=== PATIENT | female | born 1960 | race African-American/Black ===

== ENCOUNTER 2018-08-09 15:20 | Emergency (ER) | payer SELFPAY ==
[~2018-08-09] VITALS: Ht 162.6 cm; Wt 62.0 kg
[~2018-08-09 15:20] MED LIST: ALBU05 NEB; ALBU18HF2 IH; BUDE6HFA INH; CODE118S2 PO; FLUT10SP BOTHNSTRLS; MONT10TA24 PO; P20 PO; RANI150T7 PO; VENL-179 PO
[2018-08-09] MEDS ORDERED: HYDROCODONE/ACETAMINOPHEN 5/325MG TABLET PO ONE (16:00)
[2018-08-09 17:09] VITALS: BP 118/82
== END 2018-08-09 18:14 | disposition home or self-care (01) ==
LOC: MERGE 15:34 → EDBD 15:34 → ER 15:34
DX: M25.511 Pain in right shoulder (principal); Z88.0 Allergy status to penicillin
CPT/HCPCS: 73030; 99283

== ENCOUNTER 2018-09-15 12:14 | Emergency (ER) | payer SELFPAY ==
[~2018-09-15] VITALS: Ht 162.6 cm; Wt 68.0 kg
[2018-09-15 17:35] VITALS: BP 136/83
== END 2018-09-15 17:45 | disposition home or self-care (01) ==
LOC: ER 12:14
DX: M79.672 Pain in left foot (principal); R53.1 Weakness; J45.909 Unspecified asthma, uncomplicated; Z88.0 Allergy status to penicillin; Z98.890 Other specified postprocedural states; Z86.011 Personal history of benign neoplasm of the brain
CPT/HCPCS: 73610; 73630; 99283

== ENCOUNTER 2018-09-25 13:29 | Emergency (ER) | payer SELFPAY ==
[~2018-09-25] VITALS: Ht 160 cm; Wt 64.0 kg
[2018-09-25] MEDS ORDERED: KETOROLAC 30MG/ML VIAL IV STA (14:45)
[2018-09-25] MEDS ORDERED: SODIUM CHLORIDE 0.9% 1,000 ML IV ONE (14:45)
[2018-09-25 15:50] LABS: BASOPHILS % 0.4 % (0.0-2.0); EOSINOPHILS % 2.9 % (0.0-5.0); HEMATOCRIT. 32.3 % (36.0-48.0); HEMOGLOBIN. 10.6 g/dL (12.0-16.0); LYMPHOCYTES % 17.8 % (20.0-50.0); MEAN CORPUSCULAR VOLUME 78.9 fL (81.0-99.0); MEAN PLATELET VOLUME 6.3 fl (7.4-10.4); MONOCYTES % 8.4 % (2.0-8.0); NEUTROPHILS % 70.5 % (40.0-76.0); PLATELET 629 x1000/uL (130-400); RED CELL DISTRIBUTION WIDTH 15.1 % (11.6-14.6)
[2018-09-25 15:53] LABS: CHLORIDE 110 mEq/L (98-107)
[2018-09-25 15:54] LABS: INR 1.2; PROTHROMBIN TIME 12.2 sec (9.6-11.0)
[2018-09-25 15:57] LABS: ETHANOL BLOOD < 10 mg/dL
[2018-09-25] MEDS ORDERED: PREDNISONE 20MG TABLET PO ONE (17:45)
[2018-09-25 17:48] VITALS: BP 124/80
== END 2018-09-25 17:52 | disposition home or self-care (01) ==
LOC: ER 13:29
DX: M06.9 Rheumatoid arthritis, unspecified (principal); M19.90 Unspecified osteoarthritis, unspecified site; J45.909 Unspecified asthma, uncomplicated; Z88.0 Allergy status to penicillin; Z86.011 Personal history of benign neoplasm of the brain; Z98.890 Other specified postprocedural states
CPT/HCPCS: 36415; 73610; 73630; 80053; 80320; 83605; 84550; 85025; 85610; 85651; 96374; 99284; J1885; J7030; J7512; Z7610; G0480

== ENCOUNTER 2023-04-23 22:31 | Emergency (ER) | payer MEDICAID ==
[~2023-04-23] VITALS: Ht 162.6 cm; Wt 67.3 kg
[~2023-04-23 22:31] MED LIST changes: +MONT-39 PO; -MONT10TA24 PO
[2023-04-23 22:42] VITALS: O2SAT 98
[2023-04-23] MEDS ORDERED: ACETAMINOPHEN 325MG TABLET PO ONE (23:45)
[2023-04-24] MEDS ORDERED: KETOROLAC 30MG/ML VIAL IM STA (01:02)
[2023-04-24] MEDS ORDERED: ACETAMINOPHEN 325MG TABLET PO NR (02:30)
[2023-04-24] MEDS ORDERED: HYDROCODONE/ACETAMINOPHEN 5/325MG TABLET PO NR (03:01)
[2023-04-24] MEDS ORDERED: NAPR-681 MT (03:07)
[2023-04-24] MEDS ORDERED: OMEP20TA23 MT (03:07)
[2023-04-24] MEDS ORDERED: T3 PO (03:07)
[2023-04-24 03:16] VITALS: BP 151/111
[2023-04-24 03:30] VITALS: PULSE 75; RESP 20; TEMP 98.5
== END 2023-04-24 04:46 | disposition home or self-care (01) ==
LOC: ER 22:31
DX: M54.42 Lumbago with sciatica, left side (principal); M19.90 Unspecified osteoarthritis, unspecified site; J45.909 Unspecified asthma, uncomplicated; Z98.890 Other specified postprocedural states; Z88.0 Allergy status to penicillin
CPT/HCPCS: 99285; 73502; 93971; 96372; J1885

== ENCOUNTER 2024-10-16 15:22 | Emergency (ER) | payer OTHER ==
[~2024-10-16] VITALS: Ht 162.6 cm; Wt 82.0 kg
[~2024-10-16 15:22] MED LIST changes: +NAPR-681 MT; +OMEP20TA23 MT; +T3 PO
[2024-10-16 15:29] VITALS: O2SAT 98
[2024-10-16 15:32] VITALS: TEMP 36.9; O2SAT 100
[2024-10-16] MEDS ORDERED: TRAM50TA3 MT (19:57)
[2024-10-16 20:15] VITALS: BP 142/64; PULSE 76; RESP 16
[2024-10-16] MEDS: TRAMADOL 50MG TABLET PO NR (20:15)
== END 2024-10-16 20:30 | disposition home or self-care (01) ==
LOC: ER 15:22
DX: M17.11 Unilateral primary osteoarthritis, right knee (principal); J45.909 Unspecified asthma, uncomplicated; N28.9 Disorder of kidney and ureter, unspecified; Z88.0 Allergy status to penicillin; Z79.899 Other long term (current) drug therapy; Z98.890 Other specified postprocedural states; Z93.3 Colostomy status
CPT/HCPCS: 99283; A4606